=== PATIENT | female | born 1990 | race American Indian/Alaskan Native ===

== ENCOUNTER 2016-11-23 01:36 | Emergency (ER) | payer SELFPAY ==
[2016-11-23 02:36] LABS: Basophils % (Auto) 0.4 % (0.0-1.8); Eosinophils % (Auto) 0.5 % (0.0-4.3); Hematocrit 35.5 % (30.3-42.9); Hemoglobin 11.6 gm/dl (10.1-14.3); Mean Corpuscular HGB Conc 33 % (30-34); Mean Corpuscular Hemoglobin 26 pg (28-32); Mean Corpuscular Volume 81 fl (79-97); Platelet Count 339 K/mm3 (140-440); Red Blood Count 4.41 M/mm3 (3.65-5.03); Red Cell Distribution Width 15.4 % (13.2-15.2); White Blood Count 6.9 K/mm3 (4.5-11.0)
[2016-11-23 02:57] LABS: Anion Gap 17 mmol/L; Blood Urea Nitrogen 10 mg/dL (7-17); Calcium 8.8 mg/dL (8.4-10.2); Carbon Dioxide 21 mmol/L (22-30); Chloride 101.1 mmol/L (98-107); Glucose 98 mg/dL (65-100); Potassium 4.4 mmol/L (3.6-5.0); Sodium 135 mmol/L (137-145)
[2016-11-23 05:40] LABS: Bacteria,Urine 4+ /HPF (Negative); Bilirubin,Urine NEG (Negative); Blood,Urine NEG (Negative); Ketones,Urine TR mg/dL (Negative); Leukocyte Esterase,Urine NEG (Negative); Mucus,Urine 3+ /HPF; Nitrite,Urine POS (Negative)
--- NOTE | 2016-11-23 08:10 | Emergency Department Report ---
ED Allergic Reaction HPI - General Chief complaint: Chest Pain Stated complaint: CP/MAHIN Time Seen by Provider: 11/23/16 08:06 Source: patient Mode of arrival: Ambulatory Limitations: No Limitations - History of Present Illness Initial Comments: Patient reports an allergic reaction to Clarithromycin yesterday after taking prescribed medication for a tooth extraction. She complains of "tightening feeling in the throat". MD Complaint: allergic reaction Onset/Timin -: hour(s) Exposure: medication Symptoms: orolingual swelling, hoarseness, nausea, vomiting Severity: mild Treatment Prior to Arrival: none Previous Allergy History: prior ED visit(s) (allergic to Amoxicillin) - Related Data Previous Rx's Medication Instructions Recorded Last Taken Type Ibuprofen [Motrin 800 MG tab] 800 mg PO TID PRN #30 tablet 04/11/15 Unknown Rx Oxycodone HCl/Acetaminophen 1 each PO Q6HR PRN #30 tablet 04/11/15 Unknown Rx [Percocet 7.5/325 mg] Clindamycin [Clindamycin CAP] 300 mg PO Q8H #30 cap 04/29/15 Unknown Rx HYDROcodone/APAP 7.5-325 [[place] 1 each PO Q6HR PRN #14 tablet 04/29/15 Unknown Rx 7.5/325] Sulfamethoxazole/Trimethoprim 1 each PO BID #20 tablet 04/29/15 Unknown Rx [Bactrim DS TAB] Doxycycline [Vibramycin CAP] 100 mg PO Q12HR #14 capsule 11/23/16 Unknown Rx Famotidine [Pepcid] 20 mg PO BID #10 tablet 11/23/16 Unknown Rx diphenhydrAMINE [Benadryl CAP] 25 mg PO Q6HR PRN #25 capsule 11/23/16 Unknown Rx predniSONE [Deltasone] 20 mg PO QDAY #5 tab 11/23/16 Unknown Rx Allergies Allergy/AdvReac Type Severity Reaction Status Date / Time amoxicillin [Amoxicillin] Allergy Shortness Verified 01/23/15 10:56 of Breath ED Review of Systems ROS: Stated complaint: CP/MAHIN Other details as noted in HPI Constitutional: denies: chills, diaphoresis, fever, malaise, weakness Eyes: denies: eye pain, eye discharge, vision change ENT: other (throat tightening). denies: ear pain, throat pain, dental pain, hearing loss, epistaxis, congestion Respiratory: denies: cough, orthopnea, shortness of breath, SOB with exertion, SOB at rest, stridor, wheezing Cardiovascular: denies: chest pain, palpitations, dyspnea on exertion, orthopnea , edema, syncope, paroxysmal nocturnal dyspnea Gastrointestinal: denies: abdominal pain, nausea, vomiting, diarrhea, constipation, hematemesis, melena, hematochezia Musculoskeletal: denies: back pain, joint swelling, arthralgia Skin: denies: rash, lesions, change in color, change in hair/nails, pruritus Neurological: denies: headache, weakness, numbness, paresthesias, confusion, abnormal gait Psychiatric: denies: anxiety, depression Hematological/Lymphatic: denies: easy bleeding, easy bruising, swollen glands ED Past Medical Hx - Past Medical History Hx Hypertension: Yes Hx Congestive Heart Failure: No Hx Diabetes: No Hx Deep Vein Thrombosis: No Hx Renal Disease: No Hx Sickle Cell Disease: No Hx Seizures: No Hx Asthma: No Hx COPD: No Hx HIV: No - Surgical History Past Surgical History?: Yes Additional Surgical History: c section x 4 - Social History Smoking Status: Never Smoker Substance Use Type: None - Medications Home Medications: Home Medications Medication Instructions Recorded Confirmed Last Taken Type Ibuprofen [Motrin 800 MG tab] 800 mg PO TID PRN #30 tablet 04/11/15 04/29/15 Unknown Rx Oxycodone HCl/Acetaminophen 1 each PO Q6HR PRN #30 tablet 04/11/15 04/29/15 Unknown Rx [Percocet 7.5/325 mg] Clindamycin [Clindamycin CAP] 300 mg PO Q8H #30 cap 04/29/15 Unknown Rx HYDROcodone/APAP 7.5-325 [[place] 1 each PO Q6HR PRN #14 tablet 04/29/15 Unknown Rx 7.5/325] Sulfamethoxazole/Trimethoprim 1 each PO BID #20 tablet 04/29/15 Unknown Rx [Bactrim DS TAB] Doxycycline [Vibramycin CAP] 100 mg PO Q12HR #14 capsule 11/23/16 Unknown Rx Famotidine [Pepcid] 20 mg PO BID #10 tablet 11/23/16 Unknown Rx diphenhydrAMINE [Benadryl CAP] 25 mg PO Q6HR PRN #25 capsule 11/23/16 Unknown Rx predniSONE [Deltasone] 20 mg PO QDAY #5 tab 11/23/16 Unknown Rx ED Physical Exam - General Limitations: No Limitations General appearance: alert, in no apparent distress - Head Head exam: Present: atraumatic, normocephalic, normal inspection - Eye Eye exam: Present: normal appearance, PERRL, EOMI. Absent: periorbital swelling , periorbital tenderness Pupils: Present: normal accommodation - ENT ENT exam: Present: normal exam, normal orophraynx, mucous membranes moist, TM's normal bilaterally, normal external ear exam. Absent: mucous membranes dry - Expanded ENT Exam Expanded Ear exam: Present: normal external inspection Mouth exam: Present: normal external inspection, tongue normal. Absent: drooling, trismus, muffled voice, tongue elevation, laceration Teeth exam: Present: normal inspection, dental tenderness # (#18). Absent: dental caries Throat exam: Positive: normal inspection. Negative: tonsillar erythema, tonsillomegaly, tonsillar exudate, R peritonsillar mass, L peritonsillar mass - Neck Neck exam: Present: normal inspection, full ROM. Absent: tenderness, meningismus, lymphadenopathy, thyromegaly - Respiratory Respiratory exam: Present: normal lung sounds bilaterally. Absent: respiratory distress, wheezes, rales, chest wall tenderness, accessory muscle use, decreased breath sounds, prolonged expiratory - Cardiovascular Cardiovascular Exam: Present: regular rate, normal rhythm, normal heart sounds. Absent: bradycardia, tachycardia, irregular rhythm, systolic murmur, diastolic murmur - Extremities Exam Extremities exam: Present: normal inspection, full ROM, normal capillary refill - Back Exam Back exam: Present: normal inspection - Neurological Exam Neurological exam: Present: alert, oriented X3, CN II-XII intact, normal gait, reflexes normal. Absent: motor sensory deficit - Psychiatric Psychiatric exam: Present: normal affect, normal mood. Absent: depressed, agitated - Skin Skin exam: Present: warm, dry, intact, normal color. Absent: rash ED Course Vital Signs 11/23/16 11/23/16 01:54 04:53 Temperature 98.7 F 98.6 F Pulse Rate 78 73 Respiratory 16 20 Rate Blood Pressure 141/99 154/104 O2 Sat by Pulse 100 99 Oximetry ED Medical Decision Making - Lab Data Result diagrams: 11/23/16 02:04 11/23/16 02:04 Lab Results 11/23/16 11/23/16 11/23/16 Range/Units 02:04 02:04 04:44 WBC 6.9 (4.5-11.0) K/mm3 RBC 4.41 (3.65-5.03) M/mm3 Hgb 11.6 (10.1-14.3) gm/dl Hct 35.5 (30.3-42.9) % MCV 81 (79-97) fl MCH 26 L (28-32) pg MCHC 33 (30-34) % RDW 15.4 H (13.2-15.2) % Plt Count 339 (140-440) K/mm3 Lymph % (Auto) 37.5 H (13.4-35.0) % [place] % (Auto) 9.1 H (0.0-7.3) % Eos % (Auto) 0.5 (0.0-4.3) % Baso % (Auto) 0.4 (0.0-1.8) % Lymph # 2.6 (1.2-5.4) K/mm3 [place] # 0.6 (0.0-0.8) K/mm3 Eos # 0.0 (0.0-0.4) K/mm3 Baso # 0.0 (0.0-0.1) K/mm3 Seg Neutrophils % 52.5 (40.0-70.0) % Seg Neutrophils # 3.6 (1.8-7.7) K/mm3 Sodium 135 L (137-145) mmol/L Potassium 4.4 (3.6-5.0) mmol/L Chloride 101.1 (98-107) mmol/L Carbon Dioxide 21 L (22-30) mmol/L Anion Gap 17 mmol/L BUN 10 (7-17) mg/dL Creatinine 0.5 L (0.7-1.2) mg/dL Estimated GFR > 60 ml/min BUN/Creatinine Ratio 20.00 % Glucose 98 (65-100) mg/dL Calcium 8.8 (8.4-10.2) mg/dL Troponin T < 0.010 < 0.010 (0.00-0.029) ng/mL Urine Color (Yellow) Urine Turbidity (Clear) Urine pH (5.0-7.0) Ur Specific [place] (1.003-1.030) Urine Protein (Negative) mg/dL Urine Glucose (UA) (Negative) mg/dL Urine Ketones (Negative) mg/dL Urine Blood (Negative) Urine Nitrite (Negative) Urine Bilirubin (Negative) Urine Urobilinogen (<2.0) mg/dL Ur Leukocyte Esterase (Negative) Urine WBC (Auto) (0.0-6.0) /HPF Urine RBC (Auto) (0.0-6.0) /HPF U Epithel Cells (Auto) (0-13.0) /HPF Urine Bacteria (Auto) (Negative) /HPF Urine Mucus /HPF Urine HCG, Qual (Negative) 11/23/16 Range/Units 05:01 WBC (4.5-11.0) K/mm3 RBC (3.65-5.03) M/mm3 Hgb (10.1-14.3) gm/dl Hct (30.3-42.9) % MCV (79-97) fl MCH (28-32) pg MCHC (30-34) % RDW (13.2-15.2) % Plt Count (140-440) K/mm3 Lymph % (Auto) (13.4-35.0) % [place] % (Auto) (0.0-7.3) % Eos % (Auto) (0.0-4.3) % Baso % (Auto) (0.0-1.8) % Lymph # (1.2-5.4) K/mm3 [place] # (0.0-0.8) K/mm3 Eos # (0.0-0.4) K/mm3 Baso # (0.0-0.1) K/mm3 Seg Neutrophils % (40.0-70.0) % Seg Neutrophils # (1.8-7.7) K/mm3 Sodium (137-145) mmol/L Potassium (3.6-5.0) mmol/L Chloride (98-107) mmol/L Carbon Dioxide (22-30) mmol/L Anion Gap mmol/L BUN (7-17) mg/dL Creatinine (0.7-1.2) mg/dL Estimated GFR ml/min BUN/Creatinine Ratio % Glucose (65-100) mg/dL Calcium (8.4-10.2) mg/dL Troponin T (0.00-0.029) ng/mL Urine Color [place] (Yellow) Urine Turbidity Slightly-cloudy (Clear) Urine pH 5.0 (5.0-7.0) Ur Specific [place] 1.030 (1.003-1.030) Urine Protein 30 mg/dl (Negative) mg/dL Urine Glucose (UA) Neg (Negative) mg/dL Urine Ketones Tr (Negative) mg/dL Urine Blood Neg (Negative) Urine Nitrite Pos (Negative) Urine Bilirubin Neg (Negative) Urine Urobilinogen 4.0 (<2.0) mg/dL Ur Leukocyte Esterase Neg (Negative) Urine WBC (Auto) 6.0 (0.0-6.0) /HPF Urine RBC (Auto) 0.0 (0.0-6.0) /HPF U Epithel Cells (Auto) 7.0 (0-13.0) /HPF Urine Bacteria (Auto) 4+ (Negative) /HPF Urine Mucus 3+ /HPF Urine HCG, Qual Negative (Negative) - EKG Data EKG shows normal: sinus rhythm Rate: normal - EKG Data When compared to previous EKG there are: no significant change Interpretation: no acute changes, normal EKG - Radiology Data Radiology results: report reviewed, image reviewed No cardiopulmonary abnormality - Medical Decision Making During the course of ED, laboratory and radiology studies were ordered, which were within normal limits. Patient did not appear in any distress. She was instructed to discontinue taking Clarithromycin for the tooth infection. She was sent home with prescriptions for Doxycycline, Pepcid, Benadryl and Prednisone, instructed to follow up with dentistry next week, she verbalized understanding - Differential Diagnosis Allergic Reaction, Medication Allergy, Dental Pain Critical care attestation.: If time is entered above; I have spent that time in minutes in the direct care of this critically ill patient, excluding procedure time. ED Disposition Clinical Impression: Allergic reaction Qualifiers: Encounter type: initial encounter Qualified Code(s): T78.40XA - Allergy, unspecified, initial encounter Disposition: TO HOME OR SELFCARE Is pt being admited?: No Does the pt Need Aspirin: No Condition: Stable Instructions: Allergies (ED) Additional Instructions: Take medication as directed. Follow up with dentistry next week. Return back to the ED for worsening symptoms or concerns Prescriptions: diphenhydrAMINE [Benadryl CAP] 25 mg PO Q6HR PRN #25 capsule PRN Reason: Itching Doxycycline [Vibramycin CAP] 100 mg PO Q12HR #14 capsule Famotidine [Pepcid] 20 mg PO BID #10 tablet predniSONE [Deltasone] 20 mg PO QDAY #5 tab Referrals: PRIMARY CARE,MD [Primary Care Provider] - 3-5 Days [facility] [Outside] - 3-5 Days Forms: Work/School Release Form(ED) Time of Disposition: 08:18
[2016-11-23 08:23] VITALS: BP 142/92
--- NOTE | 2016-11-23 09:15 | XRay Report ---
ROUTINE CHEST, TWO VIEWS: HISTORY: chest pain. The trachea, heart, mediastinal contour, lung mckee and bony thorax are unremarkable. IMPRESSION: Unremarkable chest x-ray.
== END 2016-11-23 08:32 | disposition home or self-care (01) ==
LOC: ED 01:36
DX: T36.0X5A Adverse effect of penicillins, initial encounter (principal); I10 Essential (primary) hypertension; Z88.0 Allergy status to penicillin
CPT/HCPCS: 36415; 71020; 80048; 81001; 81025; 84484; 85025; 93005; 93010

== ENCOUNTER 2016-12-18 16:55 | Emergency (ER) | payer OTHER ==
[2016-12-18] MEDS ORDERED: FLEXERIL PO ONE (19:52)
[2016-12-18] MEDS ORDERED: NORCO 5/325 PO ONE (19:52)
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
[2016-12-18 21:06] VITALS: BP 121/76
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
== END 2016-12-18 22:48 | disposition home or self-care (01) ==
LOC: ED 16:55
DX: M54.2 Cervicalgia (principal); V49.49XA Driver injured in collision with other motor vehicles in traffic accident, initial encounter; Y93.9 Activity, unspecified; Y92.9 Unspecified place or not applicable; Y99.9 Unspecified external cause status
CPT/HCPCS: 72100; 81025

== ENCOUNTER 2017-01-16 13:55 | Emergency (ER) | payer SELFPAY ==
[2017-01-16 14:03] VITALS: BP 122/86
[2017-01-16] MEDS ORDERED: ULTRAM PO ONE (17:36)
--- NOTE | 2017-01-16 18:10 | Emergency Department Report ---
ED General Adult HPI - General Chief complaint: Extremity Injury, Lower Stated complaint: LEFT LEG SWOLLEN Time Seen by Provider: 01/16/17 17:29 Source: patient Mode of arrival: Ambulatory Limitations: No Limitations - History of Present Illness Initial comments: pt is a 26 y/o aaf who presents s/p spider bite lle yesterday, pt now with erythema pain, pt states pain is 6/10 burning pain is exacerbated by palpation pain is relieved by nothing, pt denies fever no chill no n/v Onset/Timin -: days(s) Location: left, lower extremity Radiation: non-radiation Severity scale (0 -10): 5 Quality: burning, aching Consistency: constant Improves with: none Worsens with: none Associated Symptoms: rash Treatments Prior to Arrival: none - Related Data Previous Rx's Medication Instructions Recorded Last Taken Type Ibuprofen [Motrin 800 MG tab] 800 mg PO TID PRN #30 tablet 04/11/15 Unknown Rx Oxycodone HCl/Acetaminophen 1 each PO Q6HR PRN #30 tablet 04/11/15 Unknown Rx [Percocet 7.5/325 mg] Clindamycin [Clindamycin CAP] 300 mg PO Q8H #30 cap 04/29/15 Unknown Rx HYDROcodone/APAP 7.5-325 [Honor 1 each PO Q6HR PRN #14 tablet 04/29/15 Unknown Rx 7.5/325] Sulfamethoxazole/Trimethoprim 1 each PO BID #20 tablet 04/29/15 Unknown Rx [Bactrim DS TAB] Doxycycline [Vibramycin CAP] 100 mg PO Q12HR #14 capsule 11/23/16 Unknown Rx Famotidine [Pepcid] 20 mg PO BID #10 tablet 11/23/16 Unknown Rx diphenhydrAMINE [Benadryl CAP] 25 mg PO Q6HR PRN #25 capsule 11/23/16 Unknown Rx predniSONE [Deltasone] 20 mg PO QDAY #5 tab 11/23/16 Unknown Rx Meloxicam [Mobic] 7.5 mg PO QDAY #5 tablet 12/18/16 Unknown Rx methOCARBAMOL [Robaxin TAB] 500 mg PO TID #15 tab 12/18/16 Unknown Rx Famotidine [Pepcid] 20 mg PO BID #14 tablet 01/16/17 Unknown Rx Sulfamethoxazole/Trimethoprim 1 each PO BID #14 tablet 01/16/17 Unknown Rx [Bactrim DS TAB] diphenhydrAMINE [Benadryl CAP] 25 mg PO Q6HR PRN #28 capsule 01/16/17 Unknown Rx predniSONE [Deltasone] 40 mg PO QDAY #10 tab 01/16/17 Unknown Rx Allergies Allergy/AdvReac Type Severity Reaction Status Date / Time amoxicillin [Amoxicillin] Allergy Shortness Verified 01/23/15 10:56 of Breath clindamycin Allergy Shortness Verified 12/18/16 17:20 of Breath ED Review of Systems ROS: Stated complaint: LEFT LEG SWOLLEN Other details as noted in HPI Constitutional: denies: chills, fever Eyes: denies: eye pain, eye discharge, vision change ENT: denies: ear pain, throat pain Respiratory: denies: cough, shortness of breath, wheezing Cardiovascular: denies: chest pain, palpitations Endocrine: no symptoms reported Gastrointestinal: denies: abdominal pain, nausea, diarrhea Genitourinary: denies: urgency, dysuria, discharge Musculoskeletal: denies: back pain, joint swelling, arthralgia Skin: pruritus (left lower tib/fib) Neurological: denies: headache, weakness, paresthesias Psychiatric: denies: anxiety, depression Hematological/Lymphatic: denies: easy bleeding, easy bruising ED Past Medical Hx - Past Medical History Hx Hypertension: Yes Hx Congestive Heart Failure: No Hx Diabetes: No Hx Deep Vein Thrombosis: No Hx Renal Disease: No Hx Sickle Cell Disease: No Hx Seizures: No Hx Asthma: No Hx COPD: No Hx HIV: No Additional medical history: allergic reaction to Clindamycin - Surgical History Additional Surgical History: c section x 4 - Social History Smoking Status: Never Smoker Substance Use Type: None - Medications Home Medications: Home Medications Medication Instructions Recorded Confirmed Last Taken Type Ibuprofen [Motrin 800 MG tab] 800 mg PO TID PRN #30 tablet 04/11/15 04/29/15 Unknown Rx Oxycodone HCl/Acetaminophen 1 each PO Q6HR PRN #30 tablet 04/11/15 04/29/15 Unknown Rx [Percocet 7.5/325 mg] Clindamycin [Clindamycin CAP] 300 mg PO Q8H #30 cap 04/29/15 Unknown Rx HYDROcodone/APAP 7.5-325 [Honor 1 each PO Q6HR PRN #14 tablet 04/29/15 Unknown Rx 7.5/325] Sulfamethoxazole/Trimethoprim 1 each PO BID #20 tablet 04/29/15 Unknown Rx [Bactrim DS TAB] Doxycycline [Vibramycin CAP] 100 mg PO Q12HR #14 capsule 11/23/16 Unknown Rx Famotidine [Pepcid] 20 mg PO BID #10 tablet 11/23/16 Unknown Rx diphenhydrAMINE [Benadryl CAP] 25 mg PO Q6HR PRN #25 capsule 11/23/16 Unknown Rx predniSONE [Deltasone] 20 mg PO QDAY #5 tab 11/23/16 Unknown Rx Meloxicam [Mobic] 7.5 mg PO QDAY #5 tablet 12/18/16 Unknown Rx methOCARBAMOL [Robaxin TAB] 500 mg PO TID #15 tab 12/18/16 Unknown Rx Famotidine [Pepcid] 20 mg PO BID #14 tablet 01/16/17 Unknown Rx Sulfamethoxazole/Trimethoprim 1 each PO BID #14 tablet 01/16/17 Unknown Rx [Bactrim DS TAB] diphenhydrAMINE [Benadryl CAP] 25 mg PO Q6HR PRN #28 capsule 01/16/17 Unknown Rx predniSONE [Deltasone] 40 mg PO QDAY #10 tab 01/16/17 Unknown Rx ED Physical Exam - General Limitations: No Limitations General appearance: alert, in no apparent distress - Head Head exam: Present: atraumatic, normocephalic - Eye Eye exam: Present: normal appearance - ENT ENT exam: Present: mucous membranes moist - Neck Neck exam: Present: normal inspection - Respiratory Respiratory exam: Present: normal lung sounds bilaterally. Absent: respiratory distress - Cardiovascular Cardiovascular Exam: Present: regular rate, normal rhythm. Absent: systolic murmur, diastolic murmur, rubs, gallop - GI/Abdominal GI/Abdominal exam: Present: soft, normal bowel sounds - Extremities Exam Extremities exam: Present: normal inspection - Back Exam Back exam: Present: normal inspection - Neurological Exam Neurological exam: Present: alert, oriented X3 - Psychiatric Psychiatric exam: Present: normal affect, normal mood - Skin Skin exam: Present: warm, dry, intact, erythema, urticaria. Absent: rash - Expanded Skin Exam Expanded Type of lesion: Present: bite/sting Distribution of rash: LLE Description of rash: Present: tenderness, erythematous, vesicular, urticarial ED Course Vital Signs 01/16/17 01/16/17 14:00 17:47 Temperature 98.3 F Pulse Rate 91 H Respiratory 16 18 Rate Blood Pressure 122/86 O2 Sat by Pulse 99 Oximetry ED Medical Decision Making - Medical Decision Making pt is a 26 y/o aaf who presents s/p spider bite lle yesterday, pt now with erythema pain, pt states pain is 6/10 burning pain is exacerbated by palpation pain is relieved by nothing, pt denies fever no chill no n/v no cp no sob, LLE erythema local to insect site erythema serous drainage local singula papule with purulent discharge plan: bactrim ds po x 7, benadryl 25mg po qid x 7 , pepcid 20 mg po bid x 7, prednisone, 40 mg po daily x 5, pt given care instructions for infected insecting cellulitis , pt will follow up with primary care in 3 days or return to emergency if symptoms worsen pt verbalized agreement and understnading of discharge plan. Critical care attestation.: If time is entered above; I have spent that time in minutes in the direct care of this critically ill patient, excluding procedure time. ED Disposition Clinical Impression: Cellulitis of leg, left Infected insect bite Qualifiers: Encounter type: initial encounter Qualified Code(s): W57.XXXA - Bitten or stung by nonvenomous insect and other nonvenomous arthropods, initial encounter Disposition: TO HOME OR SELFCARE Is pt being admited?: No Does the pt Need Aspirin: No Condition: Good Instructions: Cellulitis (ED), Insect Bite or Sting (ED) Prescriptions: diphenhydrAMINE [Benadryl CAP] 25 mg PO Q6HR PRN #28 capsule PRN Reason: itching Famotidine [Pepcid] 20 mg PO BID #14 tablet predniSONE [Deltasone] 40 mg PO QDAY #10 tab Sulfamethoxazole/Trimethoprim [Bactrim DS TAB] 1 each PO BID #14 tablet Referrals: PRIMARY CARE,MD [Primary Care Provider] - 3-5 Days Forms: Work/School Release Form(ED) Time of Disposition: 18:28
== END 2017-01-16 19:04 | disposition home or self-care (01) ==
LOC: ED 13:55
DX: L03.116 Cellulitis of left lower limb (principal); S80.862A Insect bite (nonvenomous), left lower leg, initial encounter; I10 Essential (primary) hypertension; Z88.1 Allergy status to other antibiotic agents; W57.XXXA Bitten or stung by nonvenomous insect and other nonvenomous arthropods, initial encounter; Y93.89 Activity, other specified; Y92.89 Other specified places as the place of occurrence of the external cause; Y99.8 Other external cause status
CPT/HCPCS: 99282